=== PATIENT | male | born 2000 | race Caucasian/White ===

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

== ENCOUNTER 2023-01-06 15:51 | Outpatient (AMB) | payer BC, SELFPAY ==
[2023-01-06 16:04] VITALS: BP 120/72; PULSE 96; O2SAT 98; BMI 20.8
--- NOTE | 2023-01-06 16:04 | MHC.PC.OV ---
Vital Signs 01/06/23 16:04 Height 5 ft 11 in Weight 149 lb BMI 20.8 BP 120/72 Blood Pressure Location Rt brachial Position Sitting Pulse 96 Pulse Source Pulse Oximeter Pulse Oximetry (%) 98 Oxygen Delivery Method Room Air Intake Visit Reasons: discuss getting depression medication Allergies Penicillins Allergy (Intermediate, Verified 01/06/23 16:06) Allergy as a child Medication List - Last Reconciled 01/06/23 by Chiki James, [employer]- sertraline 25 mg PO DAILY Tobacco use date assessed: 01/06/23 Dental Screening Dental Screen Date: 01/06/23 Did you have a dental visit in the last 12 months?: Yes Did you have a dental problem in the last 6 months where you did not have access to dental care?: No Was dental information given to patient?: Patient has dentist HPI discuss getting depression medication HPI Details Pt reports increase depression/anxiety. He is interested in starting a medication for this. Will start sertraline 25mg. Denies any SI and HI. PFSH Social History Housing: House Patient Tobacco Use Status: Never used Tobacco e-Cigarette/Vaping Use: Never Used Second Hand Smoke Exposure: No service: No Current occupational status: employed Current occupation: [employer] associate Current occupational exposures/hazards: No Cognitive needs: No Hearing needs: No Vision needs: No Questionnaire Thrive Questionnaire Date Thrive assessed: 04/09/22 TIFF-7 AMB Questionnaire TIFF-7 Date TIFF - 7 assessed: 04/09/22 Source: Developed by Drs. Quentin Bhakta, Hilary Shah, Tylor Muñiz and colleagues, with an educational santa from [employer]. Review of Systems Const Reports as per HPI Physical exam (Primary Care) Vital Signs: Last Vital Signs Pulse 96 01/06/23 16:04 BP 120/72 01/06/23 16:04 Pulse Ox 98 01/06/23 16:04 Oxygen Delivery Method Room Air 01/06/23 16:04 BMI result Body Mass Index 20.8 Tobacco/Smoking Status: Tobacco use Status Tobacco use date assessed 01/06/23 01/06/23 16:08 Patient Tobacco Use Status Never used Tobacco 01/06/23 16:08 e-Cigarette/Vaping Use Never Used 01/06/23 16:08 Thrive Assessment: Date of Thrive Assessment Date Thrive assessed 04/09/22 01/06/23 16:08 Const General: cooperative Orientation/consciousness: patient oriented x3 Resp Effort & Inspection: normal respiratory effort Auscultation: clear to auscultation bilaterally Cardio Rate: regular rate Rhythm: regular rhythm Heart sounds: S1 normal heart sound present and S2 normal heart sound present Neuro General: patient oriented x3 Psych Appearance: grossly normal Mental Status: mental status grossly normal Speech and movement: Normal speech and movement present Affect: normal affect Attitude: cooperative Thought process: Normal thought process present Thought content: Normal thought content present Insight: Good insight present (Psych) Judgement: Good judgement present (Psych) Assessment and Plan Assessment & Plan (1) Anxiety and depression: Code(s): F41.9 - Anxiety disorder, unspecified; F32.A - Depression, unspecified Plan The patient agreed to the use of a certified medical transcriptionist for this encounter. Scribed for DANIEL Santana by Ivy Corcoran certified medical transcriptionist, on 01/06/2023 at 16:30 EST. Medications: New sertraline 25 mg PO DAILY 30 tabs 3RF Coding Level of Care Code Est Pt Level 3 (08887) Diagnoses Anxiety and depression F41.9; F32.A
== END 2023-01-06 16:38 | disposition home or self-care (01) ==
PROVIDERS: PCP Nurse Practitioner Family; Visit Provider Nurse Practitioner Family
DX: F41.9 Anxiety disorder, unspecified (principal); F32.A Depression, unspecified
CPT/HCPCS: 99213

== ENCOUNTER 2023-07-30 10:11 | Outpatient (AMB) | payer BC, SELFPAY ==
[2023-07-30 10:16] VITALS: BP 138/86; PULSE 86; O2SAT 99; BMI 23.6
--- NOTE | 2023-07-30 10:16 | A.OFFPC_ITS ---
Vital Signs 07/30/23 10:16 Height 5 ft 11 in Weight 169 lb 8 oz BMI 23.6 BP 138/86 Blood Pressure Location Lt brachial Position Sitting Pulse 86 Pulse Source Pulse Oximeter Pulse Oximetry (%) 99 Oxygen Delivery Method Room Air Intake Visit Reasons: Medications Intake Note: Pt is here to follow up for anxiety and depression Allergies Penicillins Allergy (Intermediate, Verified 07/30/23 10:33) Allergy as a child Medication List - Last Reconciled 07/30/23 by DANIEL Villalba sertraline 25 mg PO DAILY Tobacco use date assessed: 07/30/23 Dental Screening Dental Screen Date: 07/30/23 Did you have a dental visit in the last 12 months?: No Did you have a dental problem in the last 6 months where you did not have access to dental care?: No Was dental information given to patient?: Patient has dentist HPI Medications HPI Details Anxiety/depression: Pt is currently taking sertraline 25mg. He reports that this helps somewhat. Will increase to 50mg. Pt does not want a therapist. Denies any SI and HI. [facility] Social History Housing: House Patient Tobacco Use Status: Never used Tobacco e-Cigarette/Vaping Use: Never Used Second Hand Smoke Exposure: No service: No Current occupational status: employed Current occupation: [employer] associate Current occupational exposures/hazards: No Cognitive needs: No Hearing needs: No Vision needs: No Questionnaire PHQ-9 Over the last 2 weeks, how often have you been bothered by any of the following problems? 1. Little interest or pleasure in doing things: nearly every day 2. Feeling down, depressed, or hopeless: nearly every day 3. Trouble falling or staying asleep, or sleeping too much: nearly every day 4. Feeling tired or having little energy: nearly every day 5. Poor appetite or overeating: nearly every day 6. Feeling bad about yourself - or that you are a failure or have let yourself or your family down: nearly every day 7. Trouble concentrating on things, such as reading the newspaper or watching television: more than half the days 8. Moving or speaking so slowly that other people could have noticed. Or the opposite - being so fidgety or restless that you have been moving around a lot more than usual: more than half the days 9. Thoughts that you would be better off or of hurting yourself in some way: not at all Total score: 22 Depression Screening Interpretation: Positive (declines therapist, denies any si or hi) Depression Screening Follow-up: Existing condition Depression Screening Done: Yes Source: Developed by Drs. Quentin Bhakta, Hilary Shah, Tylor Muñiz and colleagues, with an educational santa from [employer]. Thrive Questionnaire Date Thrive assessed: 07/30/23 I am a: Patient What is your living situation today?: I have a steady place to live Within the past 12 months, did the food you bought not last and you didn't have the money to get more?: Never true Within the past 12 months, did you worry whether your food would run out before you got money to buy more?: Never true Do you have trouble paying for medicines?: No Do you have trouble getting transportation to medical appointments?: No Do you have trouble paying your heating and electricity bill?: No Do you have trouble taking care of your child, family member or friend?: No Do you have trouble with day-to-day activities such as bathing, preparing meals, shopping, managing finances, etc.?: No Are you currently unemployed and looking for a job?: No Are you interested in more education?: Yes THRIVE Score: 0 AUDIT C Alcohol Use Questionnaire (AUDIT-C) 1. How often do you have a drink containing alcohol?: Never Total Score: 0 Score Reviewed/Action Taken: Yes TIFF-7 AMB Questionnaire TIFF-7 Date TIFF - 7 assessed: 07/30/23 Feeling nervous, anxious, or on edge: 2 = More than half the days Not being able to stop or control worryin = Several days Worrying too much about different things: 2 = More than half the days Trouble relaxin = More than half the days Being so restless that it is hard to sit still: 1 = Several days Becoming easily annoyed or irritable: 0 = Not at all Feeling afraid as if something awful might happen: 2 = More than half the days Total TIFF-7 score (0-4 normal; 5-9 mild; 10-14 moderate; 15-21 severe): 10 Source: Developed by Drs. Quentin Bhakta, Hilary Shah, Tylor Muñiz and colleagues, with an educational santa from [employer]. TIFF-7 Assessment Billing TIFF-7 Assessment Tool: TIFF-7 Assessment 68451 Review of Systems Const Reports as per HPI Physical exam (Primary Care) Vital Signs: Last Vital Signs Pulse 86 07/30/23 10:16 BP 138/86 07/30/23 10:16 Pulse Ox 99 07/30/23 10:16 Oxygen Delivery Method Room Air 07/30/23 10:16 BMI result Body Mass Index 23.6 Tobacco/Smoking Status: Tobacco use Status Tobacco use date assessed 07/30/23 07/30/23 10:21 Patient Tobacco Use Status Never used Tobacco 07/30/23 10:21 e-Cigarette/Vaping Use Never Used 07/30/23 10:21 Depression Screening Interpretation: Positive (declines therapist, denies any si or hi) Depression Screening Follow-up: Existing condition Thrive Assessment: Date of Thrive Assessment Date Thrive assessed 04/09/22 07/30/23 10:21 Const General: cooperative Orientation/consciousness: patient oriented x3 Resp Effort & Inspection: normal respiratory effort Auscultation: clear to auscultation bilaterally Cardio Rate: regular rate Rhythm: regular rhythm Heart sounds: S1 normal heart sound present and S2 normal heart sound present Neuro General: patient oriented x3 Psych Appearance: grossly normal Mental Status: mental status grossly normal Speech and movement: Normal speech and movement present Affect: normal affect Attitude: cooperative Thought process: Normal thought process present Thought content: Normal thought content present Insight: Good insight present (Psych) Judgement: Good judgement present (Psych) Assessment and Plan Assessment & Plan (1) Anxiety and depression: Code(s): F41.9 - Anxiety disorder, unspecified; F32.A - Depression, unspecified Plan: Increasing sertraline from 25mg to 50mg Plan The patient agreed to the use of a medical lab technician for this encounter. Scribed for DANIEL Santana by Ivy Corcoran medical lab technician, on 07/30/2023 at 10:35 EST. Orders: Orders TSH reflex Free T4 Today F32.A - Depression, unspecified, F41.9 - Anxiety disorder, unspecified UA CC w/rflx Micro + Cult Today F32.A - Depression, unspecified, F41.9 - Anxiety disorder, unspecified Lipid Panel Today F32.A - Depression, unspecified, F41.9 - Anxiety disorder, unspecified Complete Blood Count Auto Diff Today F32.A - Depression, unspecified, F41.9 - Anxiety disorder, unspecified Comprehensive [place]. Panel Fast Today F32.A - Depression, unspecified, F41.9 - Anxiety disorder, unspecified Medications: Changed From sertraline 25 mg PO DAILY 90 tabs 1RF To sertraline 50 mg PO DAILY 90 tabs 1RF Coding Level of Care Code Est Pt Level 3 (43982) Diagnoses Anxiety and depression F41.9; F32.A Additional Codes TIFF-7 Assessment Billing - TIFF-7 Assessment Tool: TIFF-7 Assessment 72119 ([id number])
== END 2023-07-30 11:30 | disposition home or self-care (01) ==
PROVIDERS: PCP Nurse Practitioner Family; Visit Provider Nurse Practitioner Family
DX: F41.9 Anxiety disorder, unspecified (principal); F32.A Depression, unspecified
CPT/HCPCS: 96127; 99213

== ENCOUNTER 2024-02-12 08:13 | Outpatient (AMB) | payer BC, SELFPAY ==
--- NOTE | 2024-02-12 08:19 | MHC.PC.OV ---
Vital Signs 02/12/24 08:20 Height 5 ft 11 in Weight 225 lb BMI 31.4 BP 122/78 Blood Pressure Location Lt brachial Position Sitting Pulse 98 Pulse Source Pulse Oximeter Pulse Oximetry (%) 98 Intake Visit Reasons: Physical Exam Intake Note: pt is here for annual exam. Allergies Penicillins Allergy (Intermediate, Verified 02/12/24 08:21) Allergy as a child Medication List - Last Reconciled 02/12/24 by DANIEL Villalba sertraline 50 mg PO DAILY Tobacco use date assessed: 02/12/24 Dental Screening Dental Screen Date: 02/12/24 Did you have a dental visit in the last 12 months?: Yes Did you have a dental problem in the last 6 months where you did not have access to dental care?: No Was dental information given to patient?: Patient has dentist HPI Physical Exam HPI Details Pt is here for a PE. Labs were already ordered, encouraged pt to have these drawn. [facility] Surgical History No pertinent past surgical history Family History Mother No problems noted. Father No problems noted. 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 1. Little interest or pleasure in doing things: not at all 2. Feeling down, depressed, or hopeless: not at all 3. Trouble falling or staying asleep, or sleeping too much: not at all 4. Feeling tired or having little energy: not at all 5. Poor appetite or overeating: not at all 6. Feeling bad about yourself - or that you are a failure or have let yourself or your family down: not at all 7. Trouble concentrating on things, such as reading the newspaper or watching television: not at all 8. Moving or speaking so slowly that other people could have noticed. Or the opposite - being so fidgety or restless that you have been moving around a lot more than usual: not at all 9. Thoughts that you would be better off or of hurting yourself in some way: not at all Total score: 0 Depression Screening Interpretation: Negative Depression Screening Done: Yes [id number] - PHQ-9 Billing: Yes Source: Developed by Drs. Quentin Bhakta, Hilary Shah, Tylor Muñiz and colleagues, with an educational santa from [employer]. Thrive Questionnaire Date Thrive assessed: 02/12/24 I am a: Patient What is your living situation today?: I have a steady place to live Within the past 12 months, did the food you bought not last and you didn't have the money to get more?: I choose not to answer this question Within the past 12 months, did you worry whether your food would run out before you got money to buy more?: Never true Do you have trouble paying for medicines?: No Do you have trouble getting transportation to medical appointments?: No Do you have trouble paying your heating and electricity bill?: No Do you have trouble taking care of your child, family member or friend?: No Do you have trouble with day-to-day activities such as bathing, preparing meals, shopping, managing finances, etc.?: No Are you currently unemployed and looking for a job?: No Are you interested in more education?: No Please select the resources that you would like help with: None Currently or been in a relationship where the following occur: I choose not to answer THRIVE Score: 0 AUDIT C Alcohol Use Questionnaire (AUDIT-C) 1. How often do you have a drink containing alcohol?: Never 3. How often do you have six or more drinks on one occasion?: Never Total Score: 0 Score Reviewed/Action Taken: Yes TIFF-7 AMB Questionnaire TIFF-7 Date TIFF - 7 assessed: 02/12/24 Feeling nervous, anxious, or on edge: 0 = Not at all Not being able to stop or control worryin = Not at all Worrying too much about different things: 0 = Not at all Trouble relaxin = Not at all Being so restless that it is hard to sit still: 0 = Not at all Becoming easily annoyed or irritable: 0 = Not at all Feeling afraid as if something awful might happen: 0 = Not at all Total TIFF-7 score (0-4 normal; 5-9 mild; 10-14 moderate; 15-21 severe): 0 Source: Developed by Drs. Quentin Bhakta, Hilary Shah, Tylor Muñiz and colleagues, with an educational santa from [employer]. TIFF-7 Assessment Billing TIFF-7 Assessment Tool: TIFF-7 Assessment 07525 Review of Systems Const Denies chills and Denies fever(s) Eyes Denies blurry vision ENT Denies vertigo, Denies dizziness and Denies sore throat Card Denies chest pain at rest, Denies chest pain with activity, Denies diaphoresis, Denies dyspnea and Denies dyspnea on exertion Resp Denies cough, Denies dyspnea, Denies dyspnea on exertion and Denies wheezing GI Denies abdominal pain, Denies melena, Denies hematochezia, Denies constipation, Denies diarrhea and Denies loose stools Denies hematuria Musc Denies numbness and Denies tingling Skin/Breast Denies lesions Neuro Denies vertigo, Denies dizziness, Denies numbness and Denies tingling Psych Denies anxiety, Denies depression, Denies homicidal ideation, Denies suicidal ideation and Denies other (substance abuse) Aller/Immun Denies wheezing Physical exam (Primary Care) Vital Signs: Last Vital Signs Pulse 98 02/12/24 08:20 BP 122/78 02/12/24 08:20 Pulse Ox 98 02/12/24 08:20 BMI result Body Mass Index 31.4 Tobacco/Smoking Status: Tobacco use Status Tobacco use date assessed 02/12/24 02/12/24 08:23 Patient Tobacco Use Status Never used Tobacco 02/12/24 08:23 e-Cigarette/Vaping Use Never Used 02/12/24 08:23 PHQ-9: PHQ-9 Score PHQ-9: Total score 0 02/12/24 08:23 Depression Screening Interpretation: Negative Thrive Assessment: Date of Thrive Assessment Date Thrive assessed 02/12/24 02/12/24 08:23 Currently or been in a relationship where the following occur: I choose not to answer Const General: cooperative Nutritional Appearance: well nourished Orientation/consciousness: patient oriented x3 HENMT Head: Yes normal to inspection, Yes normocephalic and Yes atraumatic Ears: TM's normal bilaterally Eyes General: appearance normal, both eyes and all related structures Alignment and Position: alignment normal and position normal Neck Neck: Yes normal visual inspection and Yes no lymphadenopathy Thyroid: Thyroid normal Resp Effort & Inspection: normal respiratory effort Auscultation: clear to auscultation bilaterally Cardio Rate: regular rate Rhythm: regular rhythm Heart sounds: S1 normal heart sound present, S2 normal heart sound present and no murmurs GI Palpation (GI): Soft to palpation and nontender Auscultation: normal bowel sounds Male General Exam: Yes normal external exam Penis: normal penis Scrotum: scrotum normal, testes descended bilaterally and no inguinal hernias Testes: no testicular mass Skin Rashes: no rashes Neuro General: patient oriented x3, moves all extremities, no focal motor deficits and deep tendon reflexes 2+ bilaterally Romberg Test: Negative Psych Appearance: grossly normal Mental Status: mental status grossly normal Speech and movement: Normal speech and movement present Affect: normal affect Attitude: cooperative Thought process: Normal thought process present Thought content: Normal thought content present Insight: Good insight present (Psych) Judgement: Good judgement present (Psych) Assessment and Plan Assessment & Plan (1) Physical exam: Code(s): Z00.00 - Encounter for general adult medical examination without abnormal findings Plan The patient agreed to the use of a medical billing representative for this encounter. Scribed for DANIEL Santana by Ivy Corcoran medical billing representative, on 02/12/2024 at 08:35 EST. Coding Level of Care Code Est Pt Prev Care 18-39y(92586) Diagnoses Physical exam Z00.00 Additional Codes TIFF-7 Assessment Billing - TIFF-7 Assessment Tool: TIFF-7 Assessment 69194 ([id number])
[2024-02-12 08:20] VITALS: BP 122/78; PULSE 98; O2SAT 98; BMI 31.4
== END 2024-02-12 09:09 | disposition home or self-care (01) ==
PROVIDERS: PCP Nurse Practitioner Family; Visit Provider Nurse Practitioner Family
DX: Z00.00 Encounter for general adult medical examination without abnormal findings (principal)
CPT/HCPCS: 99395